=== PATIENT | male | born 1975 | race American Indian/Alaskan Native ===

== ENCOUNTER 2020-02-14 22:14 | Inpatient (IN) | payer MEDICAID ==
[2020-02-15 01:35] LABS: Hematocrit 38.5 % (35.5-45.6); Hemoglobin 13.1 gm/dl (11.8-15.2); Mean Corpuscular HGB Conc 34 % (32-34); Mean Corpuscular Volume 96 fl (84-94); Platelet Count 157 K/mm3 (140-440); Red Blood Count 4.01 M/mm3 (3.65-5.03); Red Cell Distribution Width 14.6 % (13.2-15.2)
[2020-02-15 01:53] LABS: Blood Urea Nitrogen 13 mg/dL (9-20); Calcium 9.6 mg/dL (8.4-10.2); Hemolysis Index 2
[2020-02-15 01:54] LABS: BUN/Creatinine Ratio 19
[2020-02-15] MEDS ORDERED: levETIRAcetam 500 MG TAB PO ONE (03:10)
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
[2020-02-15] MEDS ORDERED: LORazepam 2 MG/ML VIAL IV PRN (06:03)
--- NOTE | 2020-02-15 06:44 | History and Physical Report ---
History of Present Illness Date of examination: 02/15/20 Date of admission: 02/15/20 05:30 Chief complaint: Chief complaint is seizure attack History of present illness: History of present illness, patient is a 44-year-old male with past medical history of traumatic brain injury and seizure disorder presenting to the emergency room after he said he had a witnessed seizure at home by the brother, it is unclear how long patient seizure lasted and the nature of the seizure attack. Patient was observed to be having low heart rate in the emergency room with heart rate ranging from about 31-45, there was no history of chest pain, no history of shortness of breath, nausea or vomiting and no history of diarrhea constipation, no history of fever or chills Past History Past Medical History: seizures, other (ASTHMA, TRAUMATIC BRAIN INJURY) Past Surgical History: Other (BRAIN SURGERY) Medications and Allergies Allergies Allergy/AdvReac Type Severity Reaction Status Date / Time acetaminophen [From Percocet] Allergy Unknown Verified 08/02/13 11:23 oxycodone HCl [From Percocet] Allergy Unknown Verified 08/02/13 11:23 Penicillins Allergy Unknown Verified 05/14/13 10:27 Home Medications Medication Instructions Recorded Confirmed Last Taken Type Topiramate [Topamax] 50 mg PO BID 08/02/13 12/10/13 12/10/13 History levETIRAcetam [Keppra TAB] 750 mg PO BID #6 tablet 08/02/13 12/10/13 12/10/13 Rx Famotidine [Pepcid] 20 mg PO BID #10 tablet 12/11/13 Unknown Rx Naproxen [Naprosyn TAB] 500 mg PO BID #30 tablet 01/06/14 Unknown Rx Penicillin Vk [Veetids TAB] 500 mg PO QID #40 tablet 01/06/14 Unknown Rx predniSONE [Deltasone] 20 mg PO BID #5 tab 01/06/14 Unknown Rx Permethrin 5% [Acticin 5% CREAM] 1 applicatio TP ONCE #1 tube 09/26/14 Unknown Rx Hydrocortisone 1% [Hydrocortisone 1 applicatio TP TID #1 tube 01/30/15 Unknown Rx 1% CREAM] hydrOXYzine HCL [Atarax] 25 mg PO TID PRN #20 tablet 01/30/15 Unknown Rx Active Meds: Active Medications Heparin Sodium (Porcine) (Heparin) 5,000 unit SUB-Q Q12HR [facility] Levetiracetam (Keppra) 1,000 mg PO BID OG Lorazepam (Ativan) 1 mg IV Q2H PRN PRN Reason: Seizures Review of Systems Constitutional: weakness, no fever, no chills, no sweats, no malaise Eyes: bilateral: other (NO BILATERAL EYE SYMPTOMS) Ears, nose, mouth and throat: no deferred, no ear pain, no ear discharge, no tinnitis, no decreased hearing, no nose pain, no nasal congestion, no nasal discharge, no sinus pressure, no sinus pain, no dysphagia, no hoarseness, no sore throat, no swelling in mouth, no swelling in throat, no headache, no gregg tigo, no pain front of neck Cardiovascular: no chest pain, no orthopnea, no palpitations, no rapid/irregular heart beat, no edema, no syncope, no lightheadedness, no shortness of breath, no paroxysmal nocturnal dyspnea, no claudication, no high blood pressure Respiratory: no cough, no cough with sputum, no excessive sputum, no hemoptysis, no shortness of breath, no dyspnea on exertion, no pleurisy Gastrointestinal: no nausea, no vomiting, no diarrhea, no constipation, no hematochezia, no loss of appetite, no early satiety, no heartburn Genitourinary Male: no dysuria, no hematuria, no urinary frequency, no urinary hesitancy, no nocturia, no testicular pain, no urinary retention Rectal: no pain, no itching Musculoskeletal: no neck pain, no shooting arm pain, no arm numbness/tingling, no low back pain, no morning stiffness, no muscle weakness, no muscle cramps, no myalgias Integumentary: no rash, no pruritis, no redness, no sores, no wounds, no jaundice Neurological: seizures, no paralysis, no weakness, no parathesias, no numbness, no tingling, no syncope, no tremors, no ataxia, no vertigo, no headaches, no migraines, no convulsions, no aphasia, no change in speech, no change in menta tion, no confusion, no memory loss Psychiatric: no memory loss, no depression, no confusion Endocrine: no polyphagia, no excessive thirst, no polydipsia, no polyuria, no nocturia, no excessive sweating, no thyroid mass, no palpatations Hematologic/Lymphatic: no easy bruising, no easy bleeding Allergic/Immunologic: no anaphylaxis, no angioedema Exam - Constitutional Vitals: Temp Pulse Resp BP Pulse Ox 97.8 F 41 L 16 109/67 98 02/15/20 01:01 02/15/20 06:03 02/15/20 06:03 02/15/20 06:03 02/15/20 06:03 General appearance: Present: no acute distress - EENT Eyes: Present: PERRL, EOM intact ENT: hearing intact, clear oral mucosa - Neck Neck: Present: supple, normal ROM, enlarged thyroid - Respiratory Respiratory effort: normal - Cardiovascular Rhythm: regular Heart Sounds: Absent: gallop, systolic murmur, diastolic murmur, click - Extremities Extremities: no ischemia, No edema Peripheral Pulses: within normal limits - Abdominal General gastrointestinal: Present: soft, non-tender, non-distended. Absent: tender, distended, rigid Male genitourinary: Present: deferred - Rectal Rectal Exam: deferred - Integumentary Integumentary: Present: clear, warm, dry. Absent: erythema, jaundice, rash, clammy - Musculoskeletal Musculoskeletal: strength equal bilaterally - Psychiatric Psychiatric: appropriate mood/affect HEART Score - HEART Score Age: < 45 Risk factors: No known risk factors Troponin: Troponin T < 0.010 ng/mL (0.00-0.029) 02/15/20 01:00 Troponin: < normal limit - Critical Actions Critical Actions: 0-3 pts:0.9-1.7%risk of adverse cardiac event.Candidate for discharge Results - Labs CBC & Chem 7: 02/15/20 01:10 02/15/20 01:10 Labs: Laboratory Last Values WBC 4.7 K/mm3 (4.5-11.0) 02/15/20 01:10 RBC 4.01 M/mm3 (3.65-5.03) 02/15/20 01:10 Hgb 13.1 gm/dl (11.8-15.2) 02/15/20 01:10 Hct 38.5 % (35.5-45.6) 02/15/20 01:10 MCV 96 fl (84-94) H 02/15/20 01:10 MCH 33 pg (28-32) H 02/15/20 01:10 MCHC 34 % (32-34) 02/15/20 01:10 RDW 14.6 % (13.2-15.2) 02/15/20 01:10 Plt Count 157 K/mm3 (140-440) 02/15/20 01:10 Sodium 145 mmol/L (137-145) 02/15/20 01:10 Potassium 3.6 mmol/L (3.6-5.0) 02/15/20 01:10 Chloride 108.9 mmol/L (98-107) H 02/15/20 01:10 Carbon Dioxide 23 mmol/L (22-30) 02/15/20 01:10 Anion Gap 17 mmol/L 02/15/20 01:10 BUN 13 mg/dL (9-20) 02/15/20 01:10 Creatinine 0.7 mg/dL (0.8-1.3) L 02/15/20 01:10 Estimated GFR > 60 ml/min 02/15/20 01:10 BUN/Creatinine Ratio 19 % 02/15/20 01:10 Glucose 87 mg/dL (75-100) 02/15/20 01:10 Calcium 9.6 mg/dL (8.4-10.2) 02/15/20 01:10 Total Creatine Kinase 135 units/L (55-170) 02/15/20 03:44 Troponin T < 0.010 ng/mL (0.00-0.029) 02/15/20 01:00 TSH 0.841 mlU/mL (0.270-4.200) 02/15/20 03:44 Foster/IV: IV Catheter Type [Left Hand] INT / [place] Assessment and Plan - Patient Problems (1) Bradycardia with 31-40 beats per minute Current Visit: Yes Status: Acute Plan to address problem: 1. 2- D ECHOCARDIOGRAM 2. CARDIOLOGY CONSULT 3. SERIAL CARDIAC ENZYMES 4. TELEMETRY (2) Seizure Current Visit: Yes Status: Acute Plan to address problem: 1. NEUROLOGY CONSULT 2. I.V ATIVAN PRN SEIZURE 3. PO KEPPRA
--- NOTE | 2020-02-15 09:56 | Cat Scan Report ---
CT HEAD WITHOUT CONTRAST INDICATION: Seizure, AMS, hx of traumatic brain injury TECHNIQUE: Axial slices were obtained through the head. Coronal and sagittal reformatted images were obtained. COMPARISON: None available. FINDINGS: There is encephalomalacia in the frontal lobes greater on the left than the right. Changes of prior l eft frontal craniotomy are noted. There is expected dilatation of the frontal horn of the left latera l ventricle. There is no acute cranial hemorrhage. There is no mass lesion or midline shift. No acute territorial infarct is identified. Bone windows demonstrate no acute osseous abnormality. Paranasal sinuses and mastoid air cells appear clear. TECHNIQUE: All CT scans at this facility use dose modulation, iterative reconstruction, automated ex posure control, weight based dosing, when appropriate, to reduce radiation dose to as low as reasonab ly achievable. IMPRESSION: 1. No acute intracranial abnormality. Signer Name: Aldo Medrano MD Signed: 02/15/2020 6:28 AM Workstation Name: [id number]
[2020-02-15] MEDS: levETIRAcetam 500 MG/5 ML ORAL LIQD PO SCH ×2 (11:35→23:25)
[2020-02-15] MEDS: HEPARIN 5,000 UNIT/1 ML VIAL SUB-Q SCH ×2 (11:42→23:32)
[2020-02-15] MEDS ORDERED: hydrOXYzine HCL 25 MG TAB PO PRN (13:32)
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
[2020-02-15] MEDS ORDERED: TOPIRAMATE 50 MG PO SCH (22:00)
[2020-02-15] MEDS ORDERED: NON-FORMULARY EACH (Levetiracetam [Keppra Tab] 750 MG) PO SCH (22:00)
[2020-02-15] MEDS: TOPIRAMATE TAB 25 MG TAB PO SCH (23:24)
[2020-02-15] MEDS: FAMOTIDINE 20 MG TAB PO SCH (23:24)
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
[2020-02-16] MEDS: TOPIRAMATE TAB 25 MG TAB PO SCH (10:07)
[2020-02-16] MEDS: FAMOTIDINE 20 MG TAB PO SCH (10:08)
[2020-02-16] MEDS: levETIRAcetam 500 MG/5 ML ORAL LIQD PO SCH (10:09)
[2020-02-16] MEDS: HEPARIN 5,000 UNIT/1 ML VIAL SUB-Q SCH (10:10)
--- NOTE | 2020-02-16 10:25 | Progress Note ---
Assessment and Plan tele reviewed - in SB HR 47 with HR low 36bpm overnight, no acute events. tte reviewed - EF 55-60%, no significant abnormalities. Currently stable cardiac status. Cont to avoid AV yoselin blocking agents. Nothing further to add from cardiac perspective at this time. Will sign off. Recommend pt follow up in our office with Dr. Christopher within 2 weeks of discharge ([phone]). The patient has been seen in conjunction with Dr. Chirstopher who agrees with the assessment and plan of care. - Patient Problems (1) Seizure disorder Current Visit: Yes Status: Acute (2) Sinus bradycardia Current Visit: Yes Status: Acute Subjective Date of service: 02/16/20 Principal diagnosis: seizure; sinus bradycardia Interval history: pt resting in bed, appears more alert today. tele reviewed - in SB HR 47 with HR low 36bpm overnight, no acute events. Objective Last Vital Signs Temp 98.3 F 02/16/20 07:29 Pulse 43 L 02/16/20 07:29 Resp 20 02/16/20 07:29 BP 109/66 02/16/20 07:29 Pulse Ox 100 02/16/20 07:29 - Physical Examination General: No Apparent Distress HEENT: Positive: PERRL, Normocephaly, Mucus Membranes Moist Neck: Positive: neck supple, trachea midline Cardiac: Positive: Regular Rhythm, S1/S2, Bradycardia Lungs: Positive: Decreased Breath Sounds Neuro: Positive: Grossly Intact Abdomen: Negative: Tender Skin: Negative: Rash Musculoskeletal: No Pain Extremities: Absent: edema - Imaging and Cardiology EKG: report reviewed, image reviewed Echo: pending - Telemetry EKG Rhythm: Sinus Bradycardia - EKG Sinus rhythms and dysrhythmias: sinus bradycardia
[2020-02-16 12:18] VITALS: BP 127/73
--- NOTE | 2020-02-16 14:33 | Cat Scan Report ---
CONTRAST ENHANCED CT SCAN OF THE HEAD: INDICATION / CLINICAL INFORMATION: 44 years Male; seizure. TECHNIQUE: Routine CT head without contrast. All CT scans at this location are performed using CT dos e reduction for ALARA by means of automated exposure control. COMPARISON: Nonenhanced CT scan of the head from 02/15/2020 FINDINGS: BRAIN / INTRACRANIAL CONTENTS: As seen in yesterday CT scan, left frontal craniotomy changes are seen . Cranioplasty is seen anteriorly on the left side. Encephalomalacia is seen in the left frontal lobe and to a lesser degree in the right medial frontal lobe with compensatory enlargement of left fronta l horn. In the contrast enhanced series, no abnormal enhancement is seen. Brainstem and cerebellar lumbar normal. ORBITS: No significant abnormality of visualized orbits. IMPRESSION: No parenchymal enhancement Encephalomalacia in the frontal lobes bilaterally more on the left Signer Name: Tsering Bernard MD Signed: 02/16/2020 2:28 PM Workstation Name: [id number]
== END 2020-02-16 14:00 | disposition home or self-care (01) | DRG 101 ==
LOC: ED 22:14 → 4A 02-15 05:30 → OBSVTOIN 02-15 13:00
PROVIDERS: ADMIT Internal Medicine; ATTEND Internal Medicine
DX: G40.909 Epilepsy, unspecified, not intractable, without status epilepticus (principal); R00.1 Bradycardia, unspecified; J45.909 Unspecified asthma, uncomplicated; F12.90 Cannabis use, unspecified, uncomplicated; Z88.0 Allergy status to penicillin; Z88.5 Allergy status to narcotic agent; Z88.1 Allergy status to other antibiotic agents; Z79.899 Other long term (current) drug therapy
CPT/HCPCS: 36415; 70450; 70460; 80048; 82550; 84443; 84484; 85027; 93005; 93306; G0378; J1644; Q9967

== ENCOUNTER 2020-02-22 21:10 | Emergency (ER) | payer MEDICAID ==
--- NOTE | 2020-02-22 23:13 | XRay Report ---
RIGHT SHOULDER 2 VIEWS INDICATION / CLINICAL INFORMATION: Injury with right shoulder pain. COMPARISON: None available. FINDINGS: BONES / JOINT(S): There is anterior, inferior and medial displacement of the right humeral head in re lationship to the glenoid. No significant arthritis. There is a probable associated Hill-Sachs lesion . SOFT TISSUES: No significant abnormality. ADDITIONAL FINDINGS: The visualized portion of the lung is clear. IMPRESSION: Anterior dislocation of the right shoulder. Signer Name: Oiron aSrgent MD Signed: 02/22/2020 11:08 PM Workstation Name: [id number]
[2020-02-22] MEDS ORDERED: SODIUM CHLORIDE 0.9% 1000 ML 1,000 ML IV ONE (23:27)
[2020-02-22] MEDS ORDERED: fentaNYL 100 MCG/2 ML INJ IV ONE (23:27)
[2020-02-22] MEDS ORDERED: MIDAZOLAM 5 MG/5 ML INJ MDV IV ONE (23:27)
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
[2020-02-23] MEDS ORDERED: ETOMIDATE 20 MG/10 ML INJ IV ONE ×2 (00:01)
--- NOTE | 2020-02-23 00:33 | XRay Report ---
RIGHT SHOULDER 1 VIEW 12:05 AM INDICATION / CLINICAL INFORMATION: Post reduction.. COMPARISON: Yesterday. FINDINGS: The previously described anterior dislocation has been reduced. No other change is seen. Signer Name: Orion Sargent MD Signed: 02/23/2020 12:29 AM Workstation Name: [id number]
[2020-02-23 01:53] VITALS: BP 125/71
== END 2020-02-23 02:10 | disposition home or self-care (01) ==
LOC: ED 21:10
DX: S43.014A Anterior dislocation of right humerus, initial encounter (principal); G40.909 Epilepsy, unspecified, not intractable, without status epilepticus; J45.909 Unspecified asthma, uncomplicated; F17.200 Nicotine dependence, unspecified, uncomplicated; F12.90 Cannabis use, unspecified, uncomplicated; Z88.8 Allergy status to other drugs, medicaments and biological substances; Z88.0 Allergy status to penicillin; Z79.899 Other long term (current) drug therapy; Z98.890 Other specified postprocedural states; X58.XXXA Exposure to other specified factors, initial encounter; Y93.89 Activity, other specified; Y92.009 Unspecified place in unspecified non-institutional (private) residence as the place of occurrence of the external cause; Y99.8 Other external cause status
CPT/HCPCS: 23650; 73020; 73030; 96361; 96374; 99284; J7030; J2250; J3010

== ENCOUNTER 2020-02-27 04:31 | Emergency (ER) | payer MEDICAID ==
[2020-02-27] MEDS ORDERED: HYDROmorphone 1 MG/1 ML INJ IV ONE (05:04)
[2020-02-27] MEDS ORDERED: ONDANSETRON 4 MG/2 ML INJ IV ONE (05:04)
[2020-02-27] MEDS ORDERED: diphenhydrAMINE 50 MG/ML VIAL IV STA (05:05)
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
--- NOTE | 2020-02-27 05:26 | XRay Report ---
Right shoulder 3 views INDICATION: Right shoulder pain IMPRESSION: Anterior inferior subluxation of the right shoulder at the glenohumeral joint. Signer Name: Jame Omer MD Signed: 02/27/2020 5:21 AM Workstation Name: [id number]
[2020-02-27] MEDS ORDERED: MIDAZOLAM 5 MG/5 ML INJ MDV IV NR (06:00)
--- NOTE | 2020-02-27 06:28 | XRay Report ---
Right shoulder single view INDICATION: Right shoulder pain IMPRESSION: Improved anatomic alignment following reduction and compared to earlier today. Signer Name: Jame Omer MD Signed: 02/27/2020 6:24 AM Workstation Name: [id number]
[2020-02-27] MEDS ORDERED: KETOROLAC 30 MG/1 ML INJ IV ONE (07:46)
[2020-02-27 07:56] VITALS: BP 114/71
== END 2020-02-27 08:00 | disposition home or self-care (01) ==
LOC: ED 04:31
DX: S43.011A Anterior subluxation of right humerus, initial encounter (principal); R56.9 Unspecified convulsions; J45.909 Unspecified asthma, uncomplicated; F17.200 Nicotine dependence, unspecified, uncomplicated; F12.10 Cannabis abuse, uncomplicated; Z98.890 Other specified postprocedural states; Z79.899 Other long term (current) drug therapy; Z88.0 Allergy status to penicillin; Z88.8 Allergy status to other drugs, medicaments and biological substances; W19.XXXA Unspecified fall, initial encounter; Y93.89 Activity, other specified; Y92.89 Other specified places as the place of occurrence of the external cause; Y99.8 Other external cause status
CPT/HCPCS: 23650; 73020; 73030; 96374; 96375; 99284; J1170; J1200; J1885; J2250; J2405

== ENCOUNTER 2020-03-05 11:02 | Emergency (ER) | payer MEDICAID ==
--- NOTE | 2020-03-05 12:45 | Emergency Department Report ---
Chief Complaint: Medical Clearance Stated Complaint: CANT SEE - HPI History of Present Illness: 44-year-old -[place] male presents to the emergency room not understanding how to fill his prescriptions that he got earlier this week. - Exam Physical Exam: Alert oriented x3 no acute distress nontoxic in appearance Patient is ambulatory without difficulties Nonlabored breathing no use of accessory muscles. Extremities full range of motion. MSE screening note: Focused history and physical exam performed. Due to findings the following was ordered: 44-year-old -[place] male presents to the emergency room not und erstanding how to fill his prescriptions that he got earlier this week. Discussed with patient that he can take his prescription to [facility]. ED Disposition for MSE Disposition: MED SCREENING EXAM-LEFT Condition: Stable Referrals: PRIMARY CARE, [Primary Care Provider] - 3-5 Days
== END 2020-03-05 11:30 | disposition left against medical advice (07) ==
LOC: ED 11:02
DX: H53.8 Other visual disturbances (principal); Z53.21 Procedure and treatment not carried out due to patient leaving prior to being seen by health care provider

== ENCOUNTER 2020-03-05 12:22 | Emergency (ER) | payer MEDICAID ==
[2020-03-05] MEDS ORDERED: levETIRAcetam 1,000 MG in SODIUM CHLORIDE 0.9% 100 ML IV ONE (12:49)
[2020-03-05] MEDS ORDERED: levETIRAcetam 1000 MG/NS 0.75% 1,000 MG/100 ML BAG IV ONE (13:00)
[2020-03-05 13:48] LABS: Basophils % (Auto) 0.8 % (0.0-1.8); Eosinophils # (Auto) 0.1 K/mm3 (0.0-0.4); Eosinophils % (Auto) 2.8 % (0.0-4.3); Hematocrit 36.5 % (35.5-45.6); Hemoglobin 12.8 gm/dl (11.8-15.2); Mean Corpuscular HGB Conc 35 % (32-34); Mean Corpuscular Volume 96 fl (84-94); Monocytes # (Auto) 0.3 K/mm3 (0.0-0.8); Monocytes % (Auto) 9.7 % (0.0-7.3); Platelet Count 159 K/mm3 (140-440); Red Blood Count 3.82 M/mm3 (3.65-5.03); Red Cell Distribution Width 14.2 % (13.2-15.2)
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
--- NOTE | 2020-03-05 14:05 | XRay Report ---
CHEST 1 VIEW INDICATION / CLINICAL INFORMATION: fever. COMPARISON: Chest radiograph 11/10/2019 FINDINGS: SUPPORT DEVICES: None. HEART / MEDIASTINUM: No significant abnormality. LUNGS / PLEURA: No significant pulmonary or pleural abnormality. No pneumothorax. ADDITIONAL FINDINGS: No significant additional findings. IMPRESSION: 1. No acute findings. Signer Name: Jordyn Salvador MD Signed: 03/05/2020 2:01 PM Workstation Name: [id number]
[2020-03-05 14:10] LABS: Blood Urea Nitrogen 11 mg/dL (9-20); Calcium 8.9 mg/dL (8.4-10.2); Hemolysis Index 6
[2020-03-05 14:11] LABS: BUN/Creatinine Ratio 16
[2020-03-05 14:59] VITALS: BP 107/68
== END 2020-03-05 15:20 | disposition home or self-care (01) ==
LOC: ED 12:22
DX: R56.9 Unspecified convulsions (principal); J45.909 Unspecified asthma, uncomplicated; F17.200 Nicotine dependence, unspecified, uncomplicated; F12.10 Cannabis abuse, uncomplicated; Z88.6 Allergy status to analgesic agent; Z88.1 Allergy status to other antibiotic agents; Z98.890 Other specified postprocedural states; Z79.899 Other long term (current) drug therapy
CPT/HCPCS: 36415; 71045; 80048; 85025; 96365; 99284; J1953